=== PATIENT | male | born 1990 | race Caucasian/White ===

== ENCOUNTER 2025-11-12 17:49 | Emergency (ER) | payer SELFPAY ==
[~2025-11-12] VITALS: Ht 160 cm; Wt 73.0 kg
[2025-11-12 17:58] VITALS: O2SAT 96
[2025-11-12] MEDS ORDERED: P20 MT (19:44)
[2025-11-12] MEDS ORDERED: TRIA15CR61 TP (19:44)
[2025-11-12] MEDS ORDERED: DIPHENHYDRAMINE 50MG CAPSULE PO ONE (19:45)
[2025-11-12] MEDS: DIPHENHYDRAMINE 25MG CAPSULE PO NR (20:06)
[2025-11-12] MEDS: DEXAMETHASONE 10 MG/ML VIAL IM ONE (20:12)
[2025-11-12 20:35] VITALS: BP 131/77; PULSE 72; RESP 17; TEMP 36.6; O2SAT 97
== END 2025-11-12 20:40 | disposition home or self-care (01) ==
LOC: ER 17:49
DX: T78.40XA Allergy, unspecified, initial encounter (principal); L50.9 Urticaria, unspecified; Z88.8 Allergy status to other drugs, medicaments and biological substances; X58.XXXA Exposure to other specified factors, initial encounter; Y93.89 Activity, other specified; Y92.89 Other specified places as the place of occurrence of the external cause; Y99.8 Other external cause status
CPT/HCPCS: 96372; 99283; Q0163; J1100; Z7610